=== PATIENT | male | born 1975 | race Caucasian/White ===

== ENCOUNTER 2019-12-16 15:37 | Emergency (ER) | payer BC ==
[2019-12-16 15:47] VITALS: BP 130/92; PULSE 79; TEMP 98.4; BMI 25.5
--- NOTE | 2019-12-16 15:49 | PDOC ---
History of Present Illness - General Stated Complaint: COUGH/ FEVER Time Seen by Provider: 12/16/19 15:42 History Source: Patient Exam Limitations: No Limitations - History of Present Illness Initial Comments: 12/16/19 15:45 Pt is a 44 y/o male who presents to the ED with complaint of dry cough, sore throat and nasal congestion for the last 2 days. He denies any fevers or sob. He denies any known COVID contacts. He has not taken anything for his symptoms. He denies any bodyaches. He has had high sugar in the past and high cholesterol but is not on any meds. He denies any allergies to medications. Review of Systems - Review of Systems Comments:: 12/16/19 15:49 Review of Systems Able to Perform ROS?: Yes Constitutional: No: Fever, Chills, Loss of Appetite, Night Sweats, Weakness HEENTM: No: Eye Pain, Vision changes, Ear Pain, Throat Pain, Throat Swelling, Mouth Pain, Difficulty Swallowing; + nasal congestion Respiratory: No: Shortness of Breath, Wheezing, Sputum Production; Positive: slight cough Cardiac (ROS): No: Chest Pain, Chest Tightness, Palpitations, Irregular Heart Beat, Edema ABD/GI: No: Nausea, Vomiting, Abdominal Pain, Diarrhea : No Dysuria, No Hematuria, No Frequency, No Urgency Musculoskeletal: No: Muscle Pain, Back Pain, Joint Pain, Muscle Weakness, Neck Pain Integumentary: No: Lesions, Rash Neurological: No: Headache, Numbness, Tingling, Weakness, Speech Difficulties *Physical Exam - Physical Exam 12/16/19 15:50 - Physical Exam General Appearance: Nourished, Appropriately Dressed, No Distress HEENT: EOMI, Normal Voice, No Pharyngeal Erythema, No Muffled/Hoarse voice, No Tonsillar Exudate, No Tonsillar Erythema, No Nasal Congestion, No Rhinorrhea, Hearing Grossly Normal Neck: Supple, No Lymphadenopathy (R), No Lymphadenopathy (L), No Rigidity, No Decreased range of motion Respiratory/Chest: Lungs Clear, Normal Breath Sounds. No Respiratory Distress, No Accessory Muscle Use, good air entry b/l, no wheezes/rales/rhonchi Cardiovascular: Regular Rhythm, Regular Rate, S1, S2 Gastrointestinal/Abdominal: Normal Bowel Sounds, Soft. Non-tender, No Guarding, No Rebound, No Rigidity Musculoskeletal: Normal Inspection. No Decreased Range of Motion Extremity: Normal Capillary Refill, Normal Inspection Integumentary: Normal Color, Dry. No Rash Neurologic: assembler finger buffs II-XII NML intact, Fully Oriented, Alert, Normal Mood/Affect, Normal Response Medical Decision Making - Medical Decision Making 12/16/19 15:51 Assessment: Pt is a 44 y/o male who presents to the ED with complaint of slight cough, nasal congestion and sore throat for the last 2 days. He denies any fevers or COVID contacts. Plan: Pt has been made aware that he has a nasopharyngitis and does not meet criteria for COVID testing. The patient should follow up with his primary doctor within 2 days for repeat evaluation. He can take Tylenol or Ibuprofen for fevers or bodyaches. He understands and agrees with treatment and plan and he is stable for discharge. Discharge - Discharge Information Problems reviewed: Yes Clinical Impression/Diagnosis: Nasopharyngitis acute Condition: Stable - Follow up/Referral - Patient Discharge Instructions Patient Printed Discharge Instructions: DI for Common Cold Additional Instructions: Drink plenty of fluids and get plenty of rest. Take Tylenol or ibuprofen for fevers or bodyaches. Follow up with your primary doctor within 2 days for repeat evaluation. - Post Discharge Activity Work/Back to School Note: Back to Work
== END 2019-12-16 16:08 | disposition home or self-care (01) ==
LOC: JER 15:37
DX: J00 Acute nasopharyngitis [common cold] (principal)
CPT/HCPCS: 99282-25